=== PATIENT | male | born 1985 | race Caucasian/White ===

== ENCOUNTER 2017-07-23 08:27 | Emergency (ER) ==
[2017-07-23 08:34] VITALS: BP 122/80; TEMP 98.1; BMI 28.2
--- NOTE | 2017-07-23 09:04 | ED.PDOC ---
General ED Provider: Dr. STACEY DINH Chief Complaint: Back Pain Stated Complaint: back pain lumbar Time Seen by Physician: 08:30 Mode of Arrival: Walk-In Information Source: Patient Exam Limitations: No limitations Nursing and Triage Documentation Reviewed and Agree: Yes Reviewed sepsis parameters & appropriate labs ordered?: Yes System Inflammatory Response Syndrome: Not Applicable Sepsis Protocol: For patient's 13 years and over: Temp is 96.8 and below OR 101 and greater Pulse >90 BPM Resp >20/minute Acutely Altered Mental Status Are patient's symptoms suggestive of a new infection, such as: -Pneumonia -Skin, Soft Tissue -Endocarditis -UTI -Bone, Joint Infection -Implantable Device -Acute Abdominal Infection -Wound Infection -Meningitis -Blood Stream Catheter Infection -Unknown System Inflammatory Response Syndrome: Not Applicable Musculoskeletal Complaint Exam - Back Pain Complaint/Exam Mechanism of Injury: Reports: No known trauma Onset/Duration: 1 week Symptoms Are: Still present Timing: Constant Episodes Lasting: Minutes Initial Severity: Moderate Current Severity: Moderate Location: Reports: Discrete Character: Reports: Aching Aggravating: Reports: Movements, Lifting, Bending, Walking Alleviating: Reports: Rest, Position Associated Signs and Symptoms: Denies: Swelling, Redness, Bruising, Fever, Weakness, Numbness, Tingling, Abdominal pain, Flank pain, Bladder incontinence, Bowel incontinence, Weight loss, Pain with weight bearing Related History: Reports: Similar episode TAD Risk Factors: Reports: None Cauda Equina Risk Factors: Reports: None Epidural Abcess Risk Factors: Reports: None Related Surgical History: Reports: None Focal Tenderness: No Paraspinal Muscle Tenderness: No Paraspinal Muscle Spasm: No Scoliosis: No Lordosis: No Kyphosis: No SLR Test: Right Negative, Left Negative Hip Motion Testing Pain: Right Negative, Left Negative Focal Weakness: Present: None Focal Sensory Loss: Present: None Gait: Present: Normal Differential Diagnoses: Strain, Sprain Review of Systems - Review Of Systems Constitutional: Reports: No symptoms Eyes: Reports: No symptoms Ears, Nose, Mouth, Throat: Reports: No symptoms Respiratory: Reports: No symptoms Cardiac: Reports: No symptoms GI: Reports: No symptoms : Reports: No symptoms Musculoskeletal: Reports: Back pain Skin: Reports: No symptoms Neurological: Reports: No symptoms Endocrine: Reports: No symptoms Hematologic/Lymphatic: Reports: No symptoms All Other Systems: Reviewed and Negative Past Medical History - Past Medical History Endocrine: Reports: None Cardiovascular: Reports: None Respiratory: Reports: None Hematological: Reports: None Gastrointestinal: Reports: GERD Genitourinary: Reports: None Neuro/Psych: Reports: None Musculoskeletal: Reports: None Cancer: Reports: None - Surgical History General Surgical History: Reports: None - Family History Family History: Reports: None - Social History Smoking Status: Former smoker, Chews tobacco Hx Substance Use: No Alcohol Screening: Occasionally Physical Exam - Physical Exam Appearance: Well-appearing, No pain distress, Well-nourished Eyes: RUBIO, EOMI, Conjunctiva clear ENT: Ears normal, Nose normal, Oropharynx normal Respiratory: Airway patent, Breath sounds clear, Breath sounds equal, Respirations nonlabored Cardiovascular: RRR, Pulses normal, No rub, No murmur GI/: Soft, Nontender, No masses, Bowel sounds normal, No Organomegaly Musculoskeletal: Normal strength, ROM intact, No edema, No calf tenderness Skin: Warm, Dry, Normal color Neurological: Sensation intact, Motor intact, Reflexes intact, Cranial nerves intact, Alert, Oriented Psychiatric: Affect appropriate, Mood appropriate Critical Care Note - Critical Care Note Total Time (mins): 0 Course - Course Vital Signs: Temp Pulse Resp BP Pulse Ox 07/23/17 08:29 98.1 F 68 16 122/80 97 Departure - Departure Time of Disposition: 09:04 Disposition: HOME SELF-CARE Discharge Problem: Backache Instructions: Back Pain (ED) Condition: Good Pt referred to PMD for follow-up: Yes IPMP verified?: No Additional Instructions: Please call your Family Physician as soon as possible to schedule a follow-up appointment. Allergies/Adverse Reactions: Allergies Penicillins Adverse Reaction (Verified 07/23/17 08:29) Hives Home Medications: Ambulatory Orders Omeprazole [Prilosec] 20 mg PO QDAC 07/23/17 Disposition Discussed With: Patient
== END 2017-07-23 09:08 | disposition home or self-care (01) ==
LOC: ED 08:27
DX: M54.5 Low back pain (principal); F17.220 Nicotine dependence, chewing tobacco, uncomplicated
CPT/HCPCS: 99282

== ENCOUNTER 2017-10-04 12:26 | Outpatient (CLI) | END 2017-10-04 12:27 | disposition home or self-care (01) | LOC: LAB 12:26 | PROVIDERS: ATTEND Nurse Practitioner | DX: G89.29 Other chronic pain (principal); K21.9 Gastro-esophageal reflux disease without esophagitis; K82.9 Disease of gallbladder, unspecified; L30.4 Erythema intertrigo; M54.5 Low back pain; N39.44 Nocturnal enuresis; R63.4 Abnormal weight loss; F17.210 Nicotine dependence, cigarettes, uncomplicated; Z78.9 Other specified health status | CPT/HCPCS: 36415; 80053; 82248; 84100; 84425; 84443; 85025 ==

== ENCOUNTER 2017-10-06 13:49 | Outpatient (CLI) | END 2017-10-06 13:50 | disposition home or self-care (01) | LOC: LAB 13:49 | PROVIDERS: ATTEND Nurse Practitioner | DX: R63.4 Abnormal weight loss (principal) | CPT/HCPCS: 82272 ==

== ENCOUNTER 2018-01-09 13:20 | Emergency (ER) ==
[2018-01-09 13:24] VITALS: BP 112/65; TEMP 98.2; BMI 26.0
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
== END 2018-01-09 14:00 | disposition home or self-care (01) ==
LOC: ED 13:20
DX: T63.461A Toxic effect of venom of wasps, accidental (unintentional), initial encounter (principal); R60.0 Localized edema; Z72.0 Tobacco use
CPT/HCPCS: 99282

== ENCOUNTER 2018-03-01 10:04 | Emergency (ER) ==
[2018-03-01 10:11] VITALS: BP 135/73; TEMP 98.5; BMI 26.9
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
[2018-03-01] MEDS ORDERED: SILVADENE CREAM TP STA (10:35)
== END 2018-03-01 11:02 | disposition home or self-care (01) ==
LOC: ED 10:04
DX: T23.071A Burn of unspecified degree of right wrist, initial encounter (principal); T31.0 Burns involving less than 10% of body surface; X08.8XXA Exposure to other specified smoke, fire and flames, initial encounter; F17.210 Nicotine dependence, cigarettes, uncomplicated
CPT/HCPCS: 99283

== ENCOUNTER 2018-05-14 07:48 | Outpatient (CLI) ==
--- NOTE | 2018-05-14 11:12 | DI ---
EXAM: Lumbar spine three views HISTORY: Low back pain FINDINGS: Compared to 08/09/2014. FINDINGS: Frontal view reveals no scoliosis. The body of the sacrum and sacroiliac joints are no rmal. Lateral views demonstrate normal alignment and vertebral body height. No disc space abnorma lity is seen. Bone density is normal. No fracture or acute finding. IMPRESSION: Findings within normal limits.
== END 2018-05-14 07:49 | disposition home or self-care (01) ==
LOC: RAD 07:48
PROVIDERS: ATTEND Nurse Practitioner
DX: M54.5 Low back pain (principal)

== ENCOUNTER 2018-06-07 09:34 | Outpatient (CLI) ==
--- NOTE | 2018-06-07 12:52 | CT ---
EXAM: CT ABDOMEN AND PELVIS HISTORY: Right-sided abdominal/back pain. TECHNIQUE: CT abdomen and pelvis with and without intravenous contrast. Images were reconstructed u sing 5 mm section thickness. Reformations were prepared. 75 mL Omnipaque. COMPARISON: 08/10/2011 FINDINGS: The liver, spleen, gallbladder, pancreas, adrenal glands, kidneys, ureters and abdominal aorta appear normal. A few prominent mesenteric lymph nodes. Normal stomach and appendix. Probable mild mucosal thickening of the right colon and to a lesser deg ree the transverse. Normal bowel gas pattern. Urinary bladder and prostate are normal. There is no ascites or inflammatory infiltration of the abdominal fat. Ventral abdominal wall is intact without herniation. Bones appear appropriate for age. Lung bases a re clear. There is no pneumoperitoneum. IMPRESSION: 1. Normal appendix. 2. Questionable early mucosal thickening in the right and transverse colon. Consider early colitis. Normal bowel gas pattern. No ascites or free air. No inflammatory infiltration of the abdominal f at. 3. Prominent mesenteric root lymph nodes could indicate a component of mesenteric adenitis.
== END 2018-06-07 09:35 | disposition home or self-care (01) ==
LOC: RAD 09:34
PROVIDERS: ATTEND Nurse Practitioner
DX: R10.9 Unspecified abdominal pain (principal)
CPT/HCPCS: 36415; 82565